=== PATIENT | female | born 1955 | race Two or more races ===

== ENCOUNTER → 2020-03-01 | Outpatient (CLI) | payer OTHER ==
--- NOTE | 2020-03-01 14:30 | KCIC ---
EXAM: Right knee, 3 views. HISTORY: Pain. COMPARISON: None. FINDINGS: 3 views of the right knee are obtained. There is no fracture, dislocation or subluxation. There is mild medial compartment spurring. There is trace joint fluid without a significant effusion. IMPRESSION: Mild medial compartment predominant osteoarthritis of the right knee. Electronically signed by: Estrellita Pena MD (03/01/2020 2:27 PM) [id number]
--- NOTE | 2020-03-01 15:11 | KCIC ---
Study: CR CERVICAL SPINE 2-3V Indication: Chronic neck pain. Right arm weakness. Comparison: None. Findings: Straightening of cervical lordosis. Multilevel discogenic arthrosis with disc space narrowing most notable at C5-C6 and C6-C7. There appears to be mild retrolisthesis of C5 on C6. Unremarkable atlantodental interval and alignment across the C1-C2 lateral masses. The dens is partially obscured by the maxilla but is grossly intact. Multilevel uncovertebral joint hypertrophy. Facet degeneration appears most pronounced at C6-C7. Normal prevertebral soft tissue thickness. Osteopenia. Impression: 1. No acute or aggressive osseous abnormality. No traumatic malalignment. 2. Straightening of cervical lordosis and mild degenerative retrolisthesis of C5 on C6. 3. Multilevel, multifactorial degenerative changes consisting of discogenic arthrosis and uncovertebral joint hypertrophy more so than facet degeneration particularly at C5-C6 and C6-C7. Electronically signed by: SEYMOUR GUNDERSON MD (03/01/2020 3:08 PM) [id number]
== END | disposition home or self-care (01) ==
LOC: KCIC 13:32
PROVIDERS: ATTEND Family Medicine
DX: M17.11 Unilateral primary osteoarthritis, right knee (principal); M40.40 Postural lordosis, site unspecified; M40.50 Lordosis, unspecified, site unspecified; M47.812 Spondylosis without myelopathy or radiculopathy, cervical region; M43.12 Spondylolisthesis, cervical region; M50.323 Other cervical disc degeneration at C6-C7 level; R20.2 Paresthesia of skin; G89.29 Other chronic pain
CPT/HCPCS: 72040; 73562

== ENCOUNTER → 2021-03-30 | Outpatient (CLI) | payer OTHER ==
--- NOTE | 2021-03-30 16:29 | KCIC ---
Examination: 3 views of the left knee HISTORY: History of left knee pain, injury COMPARISON: None available FINDINGS: The alignment of the knee joint grossly appears unremarkable. Mild joint space loss medial, lateral, patellofemoral compartments likely degenerative changes.Small knee joint effusion IMPRESSION: 1.Mild tricompartmental degenerative changes. 2. Small knee joint effusion. Electronically signed by: Kris Matias MD (03/30/2021 4:27 PM) [id number]
== END ==
LOC: KCIC 15:47
PROVIDERS: ATTEND Family Medicine
DX: M25.462 Effusion, left knee (principal); M17.12 Unilateral primary osteoarthritis, left knee
CPT/HCPCS: 73562